=== PATIENT | female | born 1980 | race Caucasian/White ===

== ENCOUNTER 2017-03-23 15:41 | Day surgery (SDC) | payer SELFPAY ==
[~2017-03-23] VITALS: Ht 160 cm; Wt 63.0 kg
[~2017-03-23 15:41] MED LIST: OMEPRAZOLE40 MG PO; TRAMADOL HCL50 MG PO; ZOFRAN4 MG PO
[2017-03-23] MEDS ORDERED: HYDROCODON-ACE1 EA16 PO (16:15)
[2017-03-23] MEDS ORDERED: CYCLOBENZAPRINE5 M1 PO (16:16)
[2017-03-23] MEDS ORDERED: KEFLEX500 M4 PO (16:17)
== END 2017-03-23 20:00 ==
LOC: SRG 15:41 → SHSB 15:41 → ORW 17:03 → PACU 18:31 → OBGF 18:55 → SRG 20:00
PROC: 0UB04ZZ Excision of Right Ovary, Percutaneous Endoscopic Approach (ICD-10-PCS; principal; 2017-03-23)
DX: N83.11 Corpus luteum cyst of right ovary (principal); K66.1 Hemoperitoneum; N73.6 Female pelvic peritoneal adhesions (postinfective); F17.210 Nicotine dependence, cigarettes, uncomplicated; N12 Tubulo-interstitial nephritis, not specified as acute or chronic; Z79.2 Long term (current) use of antibiotics; Z79.899 Other long term (current) drug therapy
CPT/HCPCS: J7030